=== PATIENT | male | born 1995 | race Asian ===

== ENCOUNTER 2024-12-12 11:29 | Emergency (ER) | payer MEDICAID ==
[~2024-12-12] VITALS: Ht 172.7 cm; Wt 69.0 kg
[2024-12-12 11:39] VITALS: O2SAT 98
[2024-12-12] MEDS ORDERED: LORAZEPAM 2MG/ML INJ IM ONE (11:45)
[2024-12-12] MEDS: LORAZEPAM 2MG/ML UD SYRINGE IM SCH (12:24)
[2024-12-12 12:28] LABS: BASOPHILS % 2.8 % (0.0-2.0); EOSINOPHILS % 3.1 % (0.0-5.0); HEMATOCRIT. 44.5 % (42.0-52.0); HEMOGLOBIN. 14.9 g/dL (14.0-18.0); LYMPHOCYTES % 24.5 % (20.0-50.0); MEAN CORPUSCULAR HEMOGLOBIN 27.8 pg (28.0-32.0); MEAN CORPUSCULAR HGB CONC 33.4 g/dL (31.0-37.0); MEAN CORPUSCULAR VOLUME 83.2 fL (80.0-94.0); MEAN PLATELET VOLUME 7.7 fl (7.4-10.4); MONOCYTES % 7.7 % (2.0-8.0); NEUTROPHILS % 61.9 % (40.0-76.0); PLATELET 346 x1000/uL (130-400); RED BLOOD CELL COUNT 5.35 mill/uL (4.7-6.1); RED CELL DISTRIBUTION WIDTH 14.3 % (11.6-14.6); WHITE BLOOD COUNT 8.3 x1000/uL (4.5-11.0)
[2024-12-12 12:38] LABS: CHLORIDE 104 mEq/L (98-107); POTASSIUM 4.5 mEq/L (3.5-5.1); SODIUM 140 mEq/L (136-145)
[2024-12-12 12:39] LABS: CARBON DIOXIDE 27 mEq/L (21-32)
[2024-12-12 12:40] LABS: CALCIUM 9.3 mg/dL (8.7-10.4)
[2024-12-12 12:44] LABS: CREATININE 1.2 mg/dL (0.6-1.3); GLUCOSE 90 mg/dL (70-105); UREA NITROGEN BLOOD 21 mg/dL (9-23)
[2024-12-12 12:45] LABS: ETHANOL BLOOD < 10 mg/dL (<10)
[2024-12-12 12:46] LABS: ACETAMINOPHEN < 2 ug/mL (10-30)
[2024-12-13 13:03] LABS: CLARITY URINE CLEAR (CLEAR); COLOR URINE YELLOW (YELLOW); GLUCOSE URINE NEGATIVE (NEGATIVE); KETONES URINE 3+ (NEGATIVE); LEUKOCYTE ESTERASE URINE NEGATIVE (NEGATIVE); NITRITE URINE NEGATIVE (NEGATIVE); OCCULT BLOOD URINE NEGATIVE (NEGATIVE); PH URINE 5.5 (4.5-8.0); PROTEIN URINE NEGATIVE (NEGATIVE); SPECIFIC GRAVITY URINE 1.027 (1.005-1.030); UROBILINOGEN URINE 0.2 E.U./dL (0.2-1.0)
[2024-12-13 13:20] LABS: *AMPHETAMINES SCREEN URINE NEGATIVE (NEGATIVE); *BENZODIAZEPINES SCREEN URINE NEGATIVE (NEGATIVE)
[2024-12-13 13:21] LABS: *BARBITURATES SCREEN URINE NEGATIVE (NEGATIVE); *COCAINE SCREEN URINE NEGATIVE (NEGATIVE); CANNABINOID URINE SCREEN PRESUMPTIVE POSITIVE (NEGATIVE); ECSTASY MDMA SCREEN URINE NEGATIVE (NEGATIVE); METHADONE URINE SCREEN NEGATIVE (NEGATIVE); OPIATES URINE SCREEN NEGATIVE (NEGATIVE); PHENCYCLIDINE URINE SCREEN NEGATIVE (NEGATIVE)
[2024-12-14] MEDS ORDERED: OLANZAPINE 5MG TABLET ODT PO SCH (09:00)
[2024-12-14] MEDS: ARIPIPRAZOLE 5MG TABLET PO ONE (10:15)
[2024-12-14 12:34] VITALS: BP 114/68; PULSE 80; RESP 15; TEMP 36.7; O2SAT 100
== END 2024-12-14 12:28 ==
LOC: ER 11:29
DX: R46.2 Strange and inexplicable behavior (principal); Z79.899 Other long term (current) drug therapy
CPT/HCPCS: 80305; 80048; 81003; 80307; 80329; 80320; 85025; 36415; 96372; 99285; 87426; J2060; Z7610 ×2; G0480